=== PATIENT | male | born 1995 | race Caucasian/White ===

== ENCOUNTER 2018-01-30 20:23 | Emergency (ER) | payer BC ==
--- OUTSIDE RECORDS SUMMARY | 2018-01-30 20:25 | XMS REPORT ---
:1995 [facility] Address [address] [place] [address] Care Team Providers Name Role Phone PROVIDER, ED TEMP Unavailable Unavailable Problems This patient has no known problems. Allergies, Adverse Reactions, Alerts This patient has no known allergies or adverse reactions. Medications This patient has no known medications. Results Test Description Test Time Test Comments Text Results Atomic Results Result Comments Chemistry 2018-01-07 09:03:00 Test Item Value Reference Range Comments Chemistry (test code=NA-T) 136 mmol/L 136-145 Chemistry (test code=K-T) 4.1 mmol/L 3.5-5.1 Chemistry (test code=CL) 99 mmol/L 98-107 Chemistry (test code=CO2) 28 mmol/L 22-29 Chemistry (test code=ANGP) 13 mmol/L 10-20 Chemistry (test code=BUN) 9 mg/dL 8.9-20.6 Chemistry (test code=CREATT) 0.90 mg/dL 0.6-1.3 Chemistry (test Greater than 90 Reference Range for Estimated code=EGFRMDRD) GFR: Greater than 90 mL/min/1.73 m2NOTE:The MDRD equation has not been validated for use with theelderly (over 70 years of age), women, patientswith serious comorbid condition or persons with extremes ofbody size, muscle mass, or nutritional status. Chemistry (test code=GLU-T) 96 mg/dL 70-105 Chemistry (test code=CA) 9.8 mg/dL 7.8-10.44 Chemistry (test code=TBILI) 1.2 mg/dL 0.2-1.2 Chemistry (test code=TP) 9.0 g/dL 6.0-8.3 Chemistry (test code=ALB) 4.8 g/dL 3.5-5.0 Chemistry (test code=GLOB) 4.2 g/dL 2.4-3.5 Chemistry (test code=AG) 1.1 g/dL 1.2-2.2 Chemistry (test code=ALP) 156 U/L 40-150 Chemistry (test code=AST) 37 U/L 5-34 Chemistry (test code=ALT) 70 U/L 8-55 [id number] 09:03:00 Test Item Value Reference Range Comments Chemistry (test code=LIP) 25 U/L 8-78 [id number] 08:50:00 Test Item Value Reference Range Comments Hematology (test code=WBCT) 10.1 thou/uL 4.8-10.8 Hematology (test code=RBCT) 5.58 mill/uL 4.70-6.10 Hematology (test code=HGBT) 15.5 g/dL 14.0-18.0 Hematology (test code=HCTT) 47.3 % 42.0-52.0 Hematology (test code=MCV) 84.8 fL 78.0-98.0 Hematology (test code=MCH) 27.8 pg 27.0-31.0 Hematology (test code=MCHC) 32.7 g/dL 32.0-36.0 Hematology (test code=RDW) 12.4 % 11.5-14.5 Hematology (test code=PLTT) 290 thou/uL 130-400 Hematology (test code=MPV) 6.8 fL 7.4-10.4 Hematology (test code=%NEUT) 66.8 % 42.0-75.0 Hematology (test code=%LYMPH) 21.2 % 21.0-51.0 Hematology (test code=%MONO) 10.1 % 0.0-10.0 Hematology (test code=%EOS) 1.5 % 0.0-10.0 Hematology (test code=%BASO) 0.4 % 0.0-1.0 Hematology (test code=NEUT#) 6.8 thou/uL 1.40-6.50 Hematology (test code=LYMPH#) 2.1 thou/uL 1.20-3.40 Hematology (test code=MONO#) 1.0 thou/uL 0.11-0.59 Hematology (test code=EOS#) 0.1 thou/uL 0.0-0.7 Hematology (test code=BASO#) 0.0 thou/uL 0.0-0.2
[2018-01-30] MEDS ORDERED: ONDANSETRON 4 MG/2 ML VIAL ONE (22:53)
[2018-01-30] MEDS ORDERED: NA CHLORIDE 0.9% 1,000 ML ONE (22:53)
[2018-01-30] MEDS ORDERED: ACETAMINOPHEN 500 MG TAB ONE (22:53)
--- NOTE | 2018-01-30 23:01 | EDPHYS ---
Physician Documentation [facility] Name: Kingsley Justin Age: 23 yrs Sex: Male : 1995 Arrival Date: 01/30/2018 Time: 20:26 Bed 14 Private MD: ED Physician Jaspreet Bhardwaj HPI: 01/30 22:34 This 23 yrs old Male presents to ER via Ambulatory with complaints of ma2 Nausea/Vomiting/Diarrhea. 22:34 The patient presents to the emergency department with nausea, vomiting, diarrhea. ma2 Possible causes: bad food exposure. Associated signs and symptoms: Pertinent positives: nausea, vomiting. Severity of symptoms: At their worst the symptoms were mild in the emergency department the symptoms are unchanged. The patient has experienced a previous episode. Historical: - Allergies: 22:20 No Known Allergies; jb4 - Home Meds: 22:20 None [Active]; jb4 - PMHx: 22:20 Hypertension; jb4 - PSHx: 22:20 None; jb4 - Immunization history:: Adult Immunizations up to date, Flu vaccine is up to date. - Social history:: Smoking status: Patient/guardian denies using tobacco, Patient/guardian denies using alcohol, Patient/guardian denies using street drugs, The patient lives with family. - Ebola Screening: : No symptoms or risks identified at this time. - Family history:: not pertinent. ROS: 22:34 Eyes: Negative for injury, pain, redness, and discharge, Cardiovascular: Negative for ma2 chest pain, palpitations, and edema. 22:34 Abdomen/GI: Positive for nausea, vomiting, and diarrhea, constipation, abdominal cramps, abdominal distension, anorexia, rectal bleeding, flatulence. 22:34 All other systems are negative. Exam: 22:34 Constitutional: This is a well developed, well nourished patient who is awake, alert, ma2 and in no acute distress. Chest/axilla: Normal chest wall appearance and motion. Nontender with no deformity. No lesions are appreciated. Cardiovascular: Regular rate and rhythm with a normal S1 and S2. No gallops, murmurs, or rubs. Normal PMI, no JVD. No pulse deficits. Respiratory: Lungs have equal breath sounds bilaterally, clear to auscultation and percussion. No rales, rhonchi or wheezes noted. No increased work of breathing, no retractions or nasal flaring. Abdomen/GI: Soft, non-tender, with normal bowel sounds. No distension or tympany. No guarding or rebound. No evidence of tenderness throughout. Vital Signs: 22:20 BP 133 / 91; Pulse 114; Resp 16; Temp 100.4(O); Pulse Ox 95% on R/A; Weight 111.13 kg jb4 (R); Height 5 ft. 8 in. (172.72 cm) (R); Pain 0/10; 23:15 BP 126 / 58; Pulse 102; Resp 16; Pulse Ox 94% on R/A; jb4 23:33 Temp 99.5(O); mt 12 00:17 BP 126 / 75; Pulse 76; Resp 18; Pulse Ox 99% on R/A; jb4 01/30 22:20 Body Mass Index 37.25 (111.13 kg, 172.72 cm) [facility] MDM: 01/30 22:34 Differential diagnosis: gastritis, viral gastroenteritis, gastroenteritis. Data ma2 reviewed: vital signs, nurses notes. Counseling: I had a detailed discussion with the patient and/or guardian regarding: the historical points, exam findings, and any diagnostic results supporting the discharge/admit diagnosis, the presence of at least one elevated blood pressure reading (>120/80) during this emergency department visit, the need for outpatient follow up. Response to treatment: the patient's symptoms have markedly improved after treatment. 22:35 Patient medically screened. ma2 Administered Medications: 22:40 Drug: Acetaminophen 1000 mg Route: PO; [facility] 23:35 Follow up: Response: No adverse reaction; Temperature is decreased [facility] 22:42 Drug: NS 0.9% 1000 ml Route: IV; Rate: 1 bolus; Site: right antecubital; 4 01/31 00:21 Follow up: Response: No adverse reaction; IV Status: Completed infusion [facility] 01/30 22:43 Drug: Zofran 4 mg Route: IVP; Site: right antecubital; [facility] 23:35 Follow up: Response: No adverse reaction; Nausea is decreased [facility] Disposition: 01/30/18 23:00 Discharged to Home. Impression: Diarrhea, unspecified. - Condition is Stable. - Prescriptions for Zofran 4 mg Oral Tablet - take 1 tablet by ORAL route every 12 hours As needed; 20 tablet. - Work release form, Medication Reconciliation Form, Thank You Letter, Antibiotic Education, Prescription Opioid Use form. - Follow up: Private Physician; When: Tomorrow; Reason: Continuance of care. Signatures: Everette Moura RN RN jb4 Jaspreet Bhardwaj MD MD ma2 Corrections: (The following items were deleted from the chart) 01/31 00:22 01/30 23:00 01/30/2018 23:00 Discharged to Home. Impression: Diarrhea, unspecified. jb4 Condition is Stable. Prescriptions for Zofran 4 mg Oral Tablet - take 1 tablet by ORAL route every 12 hours As needed; 20 tablet. and Forms are Medication Reconciliation Form, Thank You Letter, Antibiotic Education, Prescription Opioid Use. Follow up: Private Physician; When: Tomorrow; Reason: Continuance of care. ma2
--- NOTE | 2018-01-30 23:01 | ER ---
Nurse's Notes [facility] Name: Kingsley Justin Age: 23 yrs Sex: Male : 1995 Arrival Date: 01/30/2018 Time: 20:26 Bed 14 Private MD: Diagnosis: Diarrhea, unspecified Presentation: 01/30 20:35 Note Patient's girlfriend who came with him was sent by ER physician to L\T\D for aj1 clearance prior to being seen in the ER. Patient requests to accompany his girlfriend and then return to be seen when she does. 22:20 Presenting complaint: Patient states: I have had nausea, vomiting and diarrhea since jb4 this morning. I think it is food poisoning as my fiance, her sister and myself all have the same symptoms. 22:20 Transition of care: patient was not received from another setting of care. Onset of jb4 symptoms was January 30, 2018. Risk Assessment: Do you want to hurt yourself or someone else? Patient reports no desire to harm self or others. Initial Sepsis Screen: Does the patient meet any 2 criteria? HR > 90 bpm. Yes Does the patient have a suspected source of infection?. 22:20 Method Of Arrival: Ambulatory jb4 22:20 Acuity: EDMAR 3 jb4 22:20 Care prior to arrival: None. jb4 Triage Assessment: 22:20 General: Appears in no apparent distress. comfortable, Behavior is calm, cooperative, jb4 appropriate for age. Pain: Denies pain. EENT: No signs and/or symptoms were reported regarding the EENT system. Neuro: Level of Consciousness is awake, alert, obeys commands, Oriented to person, place, time, situation. Cardiovascular: Heart tones S1 S2 present Patient's skin is warm and dry. Respiratory: Airway is patent Respiratory effort is even, unlabored, Respiratory pattern is regular, symmetrical, Breath sounds are clear bilaterally. GI: Abdomen is round non-distended, Bowel sounds present X 4 quads. Abd is soft and non tender X 4 quads. Reports diarrhea, nausea, vomiting. : No signs and/or symptoms were reported regarding the genitourinary system. Derm: Skin is intact, Skin is pink, warm \T\ dry. Musculoskeletal: Circulation, motion, and sensation intact. Historical: - Allergies: 22:20 No Known Allergies; jb4 - Home Meds: 22:20 None [Active]; jb4 - PMHx: 22:20 Hypertension; jb4 - PSHx: 22:20 None; jb4 - Immunization history:: Adult Immunizations up to date, Flu vaccine is up to date. - Social history:: Smoking status: Patient/guardian denies using tobacco, Patient/guardian denies using alcohol, Patient/guardian denies using street drugs, The patient lives with family. - Ebola Screening: : No symptoms or risks identified at this time. - Family history:: not pertinent. Screenin:37 Abuse screen: Denies threats or abuse. Nutritional screening: No deficits noted. jb4 Tuberculosis screening: No symptoms or risk factors identified. 22:37 Fall Risk None identified. jb4 Assessment: 22:37 General: see triage assement.. GI: Abdomen is round non-distended, Bowel sounds present jb4 X 4 quads. Abd is soft and non tender X 4 quads. Reports diarrhea, nausea, vomiting. 23:29 Reassessment: Patient appears in no apparent distress at this time. Patient and/or jb4 family updated on plan of care and expected duration. Pain level reassessed. Patient is alert, oriented x 3, equal unlabored respirations, skin warm/dry/pink. Waiting for IV fluid to finish prior to discharge. 01/31 00:17 Reassessment: Patient appears in no apparent distress at this time. Patient and/or jb4 family updated on plan of care and expected duration. Pain level reassessed. Patient is alert, oriented x 3, equal unlabored respirations, skin warm/dry/pink. Discussed D/c, F/u with pt and significant other, denies questions or concerns. Vital Signs: 01/30 22:20 BP 133 / 91; Pulse 114; Resp 16; Temp 100.4(O); Pulse Ox 95% on R/A; Weight 111.13 kg jb4 (R); Height 5 ft. 8 in. (172.72 cm) (R); Pain 0/10; 23:15 BP 126 / 58; Pulse 102; Resp 16; Pulse Ox 94% on R/A; jb4 23:33 Temp 99.5(O); mt 01/31 00:17 BP 126 / 75; Pulse 76; Resp 18; Pulse Ox 99% on R/A; jb4 12/14 22:20 Body Mass Index 37.25 (111.13 kg, 172.72 cm) jb4 ED Course: 01/30 20:26 Patient arrived in ED. al2 22:20 Arm band placed on left wrist. jb4 22:27 Jaspreet Bhardwaj MD is Attending Physician. ma2 22:30 Everette Moura, RN is Primary Nurse. jb4 22:31 Triage completed. jb4 22:37 Patient has correct armband on for positive identification. Bed in low position. Call jb4 light in reach. Side rails up X 1. Pulse ox on. NIBP on. 22:40 Inserted saline lock: 20 gauge in right antecubital area, using aseptic technique. mt Blood collected. 01/31 00:17 No provider procedures requiring assistance completed. Patient did not have IV access jb4 during this emergency room visit. Administered Medications: 01/30 22:40 Drug: Acetaminophen 1000 mg Route: PO; jb4 23:35 Follow up: Response: No adverse reaction; Temperature is decreased jb4 22:42 Drug: NS 0.9% 1000 ml Route: IV; Rate: 1 bolus; Site: right antecubital; jb4 01/31 00:21 Follow up: Response: No adverse reaction; IV Status: Completed infusion jb4 01/30 22:43 Drug: Zofran 4 mg Route: IVP; Site: right antecubital; jb4 23:35 Follow up: Response: No adverse reaction; Nausea is decreased jb4 Outcome: 23:00 Discharge ordered by . ma2 01/31 00:17 Discharged to home ambulatory. jb4 Condition: stable Discharge instructions given to patient, significant other, Instructed on discharge instructions, follow up and referral plans. medication usage, Demonstrated understanding of instructions, follow-up care, medications, Prescriptions given X 1. 00:22 Patient left the ED. jb4 Signatures: Nesha Cm RN RN aj1 Everette Moura RN RN jb4 Belinda Downs mt, Angelica al2 Alzahri, Mohammad, MD MD ma2
== END 2018-01-31 00:22 | disposition home or self-care (01) ==
LOC: ER 20:23
DX: R19.7 Diarrhea, unspecified (principal); I10 Essential (primary) hypertension
CPT/HCPCS: 96361; 96374; 99284; J2405; J7030

== ENCOUNTER 2018-08-22 18:26 | Emergency (ER) | payer BC ==
--- OUTSIDE RECORDS SUMMARY | 2018-08-22 18:29 | XMS REPORT ---
:1995 [facility] Address [address] [place] [address] Care Team Providers Name Role Phone PROVIDER, [...] 5-34 Chemistry (test code=ALT) 70 U/L 8-55 [id number] 09:03:00 Test Item Value Reference Range Comments Chemistry (test code=LIP) 25 U/L 8-78 [id number] 08:50:00 Test Item Value Reference Range Comments [...]
--- NOTE | 2018-08-22 19:11 | RAD REPORT ---
EXAM DESCRIPTION: CT - Head C Spine Cap Wo Con - 08/22/2018 6:55 pm CLINICAL HISTORY: Trauma, head and neck injury. Chest, abdomen and pelvis pain. Pain;Smash injury COMPARISON: No comparisons TECHNIQUE: CT head without contrast. CT cervical spine without contrast with coronal and sagittal reformatted images. CT chest, abdomen and pelvis without contrast with coronal and sagittal reformatted images of the [facility]. All CT scans are performed using dose optimization technique as appropriate and may include automated exposure control or mA/KV adjustment according to patient size. FINDINGS: CT HEAD WITHOUT CONTRAST: No intracranial hemorrhage, hydrocephalus or extra-axial fluid collection. No areas of brain edema o r midline shift. The paranasal sinuses and mastoids are clear. The calvarium is intact. CT CERVICAL SPINE WITHOUT CONTRAST: No fracture or subluxation. The prevertebral soft tissues are normal in thickness. CT CHEST, ABDOMEN, PELVIS WITHOUT CONTRAST: NOTE: Lack of contrast is a significant limitation in the assessment of trauma related findings. Spec ifically, solid organ, vascular and bowel evaluation is significantly limited. The lungs are clear.No pneumothorax or pericardial/pleural fluid. No evidence of intra-abdominal visceral injury, free fluid or free air is seen within the above detai led limitations. No concerning pelvic findings. No fractures. IMPRESSION: Negative for acute traumatic findings within the above detailed limitations.
[2018-08-22] MEDS ORDERED: TETANUS & DIPHTHERIA TOX,ADULT 0.5 ML VIAL ONE (19:15)
[2018-08-22] MEDS ORDERED: HYDROCODONE/APAP 7.5/325 MG TAB ONE (19:15)
--- NOTE | 2018-08-22 19:47 | EDPHYS ---
Physician Documentation [facility] Name: Kingsley Justin Age: 23 yrs Sex: Male : 1995 Arrival Date: 08/22/2018 Time: 18:29 Bed 6 Private MD: ED Physician Jaspreet Bhardwaj HPI: 08/22 19:00 This 23 yrs old Male presents to ER via Ambulatory with complaints of Fall snw Injury. 19:00 Details of fall: The patient fell from a height, down approximately 20 stairs. Onset: snw The symptoms/episode began/occurred suddenly, just prior to arrival. Associated injuries: The patient sustained injury to the low back, pain with movement. Severity of symptoms: At their worst the symptoms were moderate, in the emergency department the symptoms are unchanged. The patient has not experienced similar symptoms in the past. It is unknown whether or not the patient has recently seen a physician. pt was on inflatable water slide, fell off top (20 feet), and landed on buttock on grass. No LOC. Historical: - Allergies: 18:44 No Known Allergies; iw - Home Meds: 18:44 None [Active]; iw - PMHx: 18:44 Hypertension; iw - PSHx: 18:44 None; iw - Immunization history: Last tetanus immunization: unknown. - Social history:: Smoking status: unknown. - Ebola Screening: : Patient negative for fever greater than or equal to 101.5 degrees Fahrenheit, and additional compatible Ebola Virus Disease symptoms Patient denies exposure to infectious person Patient denies travel to an Ebola-affected area in the 21 days before illness onset No symptoms or risks identified at this time. ROS: 19:00 Constitutional: Negative for fever, chills, and weight loss, Eyes: Negative for injury, snw pain, redness, and discharge, ENT: Negative for injury, pain, and discharge, Neck: Negative for injury, pain, and swelling, Cardiovascular: Negative for chest pain, palpitations, and edema, Respiratory: Negative for shortness of breath, cough, wheezing, and pleuritic chest pain, Abdomen/GI: Negative for abdominal pain, nausea, vomiting, diarrhea, and constipation, : Negative for injury, bleeding, discharge, and swelling, MS/Extremity: Negative for injury and deformity, Skin: Negative for injury, rash, and discoloration, Neuro: Negative for headache, weakness, numbness, tingling, and seizure. 19:00 Back: Positive for pain with movement, of the low back area and mid back area. Exam: 18:57 Constitutional: This is a well developed, well nourished patient who is awake, alert, snw and in no acute distress. Head/Face: Normocephalic, atraumatic. Eyes: Pupils equal round and reactive to light, extra-ocular motions intact. Lids and lashes normal. Conjunctiva and sclera are non-icteric and not injected. Cornea within normal limits. Periorbital areas with no swelling, redness, or edema. ENT: Nares patent. No nasal discharge, no septal abnormalities noted. Tympanic membranes are normal and external auditory canals are clear. Oropharynx with no redness, swelling, or masses, exudates, or evidence of obstruction, uvula midline. Mucous membranes moist. Neck: Trachea midline, no thyromegaly or masses palpated, and no cervical lymphadenopathy. Supple, on exam pt winced with palpation of c-spine. Cervical traction maintained and c-collar placed. No Meningismus. Chest/axilla: Normal chest wall appearance and motion. Nontender with no deformity. No lesions are appreciated. Cardiovascular: Regular rate and rhythm with a normal S1 and S2. No gallops, murmurs, or rubs. Normal PMI, no JVD. No pulse deficits. Respiratory: Lungs have equal breath sounds bilaterally, clear to auscultation and percussion. No rales, rhonchi or wheezes noted. No increased work of breathing, no retractions or nasal flaring. Abdomen/GI: Soft, non-tender, with normal bowel sounds. No distension or tympany. No guarding or rebound. No evidence of tenderness throughout. Back: No spinal tenderness, low back tenderness with movement. No costovertebral tenderness, encouraged to limit range of motion until CT evaluation Skin: Warm, dry with normal turgor. Normal color with no rashes, no lesions, and no evidence of cellulitis. Vital Signs: 18:44 BP 157 / 93; Pulse 90; Resp 18 S; Temp 97.8(TE); Pulse Ox 98% on R/A; Weight 122.47 kg; iw Height 5 ft. 8 in. (172.72 cm); Pain 8/10; 19:40 BP 138 / 84; Pulse 96; Resp 16; Temp 98.1; Pulse Ox 98% on R/A; Pain 5/10; ak1 18:44 Body Mass Index 41.05 (122.47 kg, 172.72 cm) iw Pettus Coma Score: 18:44 Eye Response: spontaneous(4). Verbal Response: oriented(5). Motor Response: obeys iw commands(6). Total: 15. Trauma Score (Adult): 18:44 Eye Response: spontaneous(1); Verbal Response: oriented(1); Motor Response: obeys iw commands(2); Systolic BP: > 89 mm Hg(4); Respiratory Rate: 10 to 29 per min(4); Jose A Score: 15; Trauma Score: 12 MDM: 18:40 Patient medically screened. snw 19:47 Data reviewed: vital signs, nurses notes. Data interpreted: Pulse oximetry: on room air snw is 98 %. Interpretation: normal. Counseling: I had a detailed discussion with the patient and/or guardian regarding: the historical points, exam findings, and any diagnostic results supporting the discharge/admit diagnosis, the presence of at least one elevated blood pressure reading (>120/80) during this emergency department visit, radiology results, the need for outpatient follow up, to return to the emergency department if symptoms worsen or persist or if there are any questions or concerns that arise at home. Special discussion: I have referred the patient to see his PCP for further evaluation of high blood pressure. Based on the history and exam findings, there is no indication for further emergent testing or inpatient evaluation. I discussed with the patient/guardian the need to see the primary care provider for further evaluation of the symptoms. 08/22 18:40 Order name: CT Traumagram (Head C Spine CAP wo con); Complete Time: 19:18 snw Administered Medications: 19:00 Drug: Tetanus-Diphtheria Toxoid Adult 0.5 ml {Application Security Engineer: [employer]. Exp: ca1 05/09/2020. Lot #: [id number]. } Route: IM; Site: right deltoid; 19:45 Follow up: Response: No adverse reaction ak1 19:00 Drug: Madison (7.5 mg-325 mg) 1 tabs Route: PO; ca1 19:45 Follow up: Response: No adverse reaction; Pain is decreased ak1 20:01 Drug: Valium 5 mg Route: PO; ak1 20:01 Follow up: Response: No adverse reaction; Medication administered at discharge. ak1 Disposition: 08/22/18 19:46 Discharged to Home. Impression: Fall (on) (from) unspecified stairs and steps, Low back pain. - Condition is Stable. - Discharge Instructions: Back Pain, Adult, Musculoskeletal Pain, Back Injury Prevention, Xcdb-[id number], How to Take Your Blood Pressure, Iguo-yu-Ajoz, Back Exercises, Gmys-dp-Kuea, Cryotherapy, Rehydration, Adult, Heat Therapy, Form - Blood Pressure Record Sheet. - Prescriptions for Diclofenac Sodium 75 mg Oral Tablet Sustained Release - take 1 tablet by ORAL route 2 times per day; 30 tablet. orphenadrine citrate 100 mg Oral Tablet Sustained Release - take 1 tablet by ORAL route 2 times per day As needed; 20 tablet. - Work release form, Medication Reconciliation Form, Thank You Letter, Antibiotic Education, Prescription Opioid Use form. - Follow up: Private Physician; When: 2 - 3 days; Reason: Recheck today's complaints, Continuance of care, Re-evaluation by your physician. Follow up: Emergency Department; When: As needed; Reason: Worsening of condition. Addendum: 08/27/2018 02:10 Co-signature as Attending Physician, Jaspreet Bhardwaj MD. m a2 Signatures: Dispatcher [employer] EDFL Shanti Deleon, ANGELIQUE-C DRILL PRESS TENDER-Csnw Tonia Simms RN RN Christiana Delaney RN RN ak1 Jaspreet Bhardwaj MD MD [facility] Sabrina Lee RN RN ca1 Corrections: (The following items were deleted from the chart) 08/22 20:03 19:46 08/22/2018 19:46 Discharged to Home. Impression: Fall (on) (from) unspecified ak1 stairs and steps; Low back pain. Condition is Stable. Forms are Medication Reconciliation Form, Thank You Letter, Antibiotic Education, Prescription Opioid Use. Follow up: Private Physician; When: 2 - 3 days; Reason: Recheck today's complaints, Continuance of care, Re-evaluation by your physician. Follow up: Emergency Department; When: As needed; Reason: Worsening of condition. snw
--- NOTE | 2018-08-22 19:47 | ER ---
Nurse's Notes [facility] Name: Kingsley Justin Age: 23 yrs Sex: Male : 1995 Arrival Date: 08/22/2018 Time: 18:29 Bed 6 Private MD: Diagnosis: Fall (on) (from) unspecified stairs and steps;Low back pain Presentation: 08/22 18:39 Presenting complaint: Patient states: fell off inflatable water slide, fell from 20 iw feet, fell onto buttocks and back, denies LOC, now has pain from mid back to tail bone, rates pain 8/10, denies numbness, tingling, or weakness in extremities. Care prior to arrival: None. Mechanism of Injury: Fall 20 feet from water slide. Trauma event details: Injury occurred in the [facility], Injury occurred: at home. Injury occurred: August 22, 2018. 18:39 Acuity: EDMAR 2 iw 18:39 Method Of Arrival: Ambulatory iw 18:46 Transition of care: patient was not received from another setting of care. Onset of iw symptoms was August 22, 2018. Risk Assessment: Do you want to hurt yourself or someone else? Patient reports no desire to harm self or others. Initial Sepsis Screen: Does the patient meet any 2 criteria? No. Patient's initial sepsis screen is negative. Does the patient have a suspected source of infection? No. Patient's initial sepsis screen is negative. Trauma Activation: Alert Physician: ED Physician; Name: Dr. Bhardwaj/Shanti Deleon, CORSET FITTER; Notified At: 18:33; Arrived At: 18:33 Physician: General Surgeon; Name: N/A; Notified At: 18:33; Arrived At: N/A Physician: Radiology; Name: ; Notified At: 18:33; Arrived At: Physician: Respiratory; Name: N/A; Notified At: 18:33; Arrived At: N/A Physician: Lab; Name: N/A; Notified At: 18:33; Arrived At: N/A Historical: - Allergies: 18:44 No Known Allergies; iw - Home Meds: 18:44 None [Active]; iw - PMHx: 18:44 Hypertension; iw - PSHx: 18:44 None; iw - Immunization history: Last tetanus immunization: unknown. - Social history:: Smoking status: unknown. - Ebola Screening: : Patient negative for fever greater than or equal to 101.5 degrees Fahrenheit, and additional compatible Ebola Virus Disease symptoms Patient denies exposure to infectious person Patient denies travel to an Ebola-affected area in the 21 days before illness onset No symptoms or risks identified at this time. Screenin:45 Abuse screen: Denies threats or abuse. Denies injuries from another. Tuberculosis iw screening: No symptoms or risk factors identified. 19:42 Nutritional screening: No deficits noted. Fall Risk None identified. ak1 Primary Survey: 18:45 NO uncontrolled hemorrhage observed. A: The patient is alert. Airway: patent, No iw supplemental oxygen in use on arrival. Breathing/Chest: Respiratory pattern: regular, Respiratory effort: spontaneous, Breath sounds: clear, Chest inspection: symmetrical rise and fall of the chest. Circulation: Heart tones present. Pulses: palpable bilateral radial, brachial, femoral, popliteal, posterior tibial and and dorsalis pedis arteries.. Disability Alert. Exposure/Environment: All clothing and personal items were removed. Forensic evidence collection is not deemed to be indicated at this time. Items placed in patient belonging bag. 18:47 Reassessment Airway Airway Patent Breathing/Chest Respiratory pattern Regular iw Respiratory effort Spontaneous Unlabored Circulation Pulses Palpable Disability Alert. Assessment: 19:40 General: Appears in no apparent distress. comfortable, pt C-collar removed per ERP. . ak1 Behavior is calm, cooperative. Pain: Pain currently is 5 out of 10 on a pain scale. Neuro: Level of Consciousness is awake, alert, obeys commands, Oriented to person, place, time, situation, Sharepoint Designer Developer are equal bilaterally Moves all extremities. Speech is normal, Facial symmetry appears normal. Cardiovascular: No deficits noted. Respiratory: No deficits noted. GI: No signs and/or symptoms were reported involving the gastrointestinal system. : No signs and/or symptoms were reported regarding the genitourinary system. EENT: No signs and/or symptoms were reported regarding the EENT system. Derm: No signs and/or symptoms reported regarding the dermatologic system. Musculoskeletal: Range of motion: limited in mid back area and low back area limited due to pain. pt stated pain is decreased after medications. Injury Description: fall from water slide aprox 20 feet in air. Vital Signs: 18:44 BP 157 / 93; Pulse 90; Resp 18 S; Temp 97.8(TE); Pulse Ox 98% on R/A; Weight 122.47 kg; iw Height 5 ft. 8 in. (172.72 cm); Pain 8/10; 19:40 BP 138 / 84; Pulse 96; Resp 16; Temp 98.1; Pulse Ox 98% on R/A; Pain 5/10; ak1 18:44 Body Mass Index 41.05 (122.47 kg, 172.72 cm) iw Bison Coma Score: 18:44 Eye Response: spontaneous(4). Verbal Response: oriented(5). Motor Response: obeys iw commands(6). Total: 15. Trauma Score (Adult): 18:44 Eye Response: spontaneous(1); Verbal Response: oriented(1); Motor Response: obeys iw commands(2); Systolic BP: > 89 mm Hg(4); Respiratory Rate: 10 to 29 per min(4); Bison Score: 15; Trauma Score: 12 ED Course: 18:29 Patient arrived in ED. rg4 18:34 [facility]C [facility]. snw 18:34 Jaspreet Bhardwaj MD is Attending Physician. snw 18:34 Sabrina Lee, JAZZY is Primary Nurse. ca1 18:44 Triage completed. iw 18:46 Patient has correct armband on for positive identification. iw 18:46 Arm band placed on. iw 18:46 Patient maintains SpO2 saturation greater than 95% on room air. Thermoregulation: warm iw blanket given to patient. 18:55 CT Traumagram (Head C Spine CAP wo con) In Process Unspecified. EDMS 19:43 No provider procedures requiring assistance completed. ak1 20:03 Patient did not have IV access during this emergency room visit. ak1 Administered Medications: 19:00 Drug: Tetanus-Diphtheria Toxoid Adult 0.5 ml {Bistro Attendant: CGTrader. Exp: ca1 05/09/2020. Lot #: [id number]. } Route: IM; Site: right deltoid; 19:45 Follow up: Response: No adverse reaction ak1 19:00 Drug: [place] (7.5 mg-325 mg) 1 tabs Route: PO; ca1 19:45 Follow up: Response: No adverse reaction; Pain is decreased ak1 20:01 Drug: Valium 5 mg Route: PO; ak1 20:01 Follow up: Response: No adverse reaction; Medication administered at discharge. ak1 Intake: 19:42 PO: 0ml; Total: 0ml. ak1 Outcome: 19:46 Discharge ordered by MD. fang 20:02 Discharged to home ambulatory, with family. ak1 20:02 Condition: good 20:02 Discharge instructions given to patient, family, Instructed on discharge instructions, follow up and referral plans. no drinking with medication, no driving heavy equipment, medication usage, Demonstrated understanding of instructions, follow-up care, medications, Prescriptions given X 2. 20:03 Patient left the ED. ak1 Signatures: Dispatcher [employer] EDMS Shanti Deleon, STONE DERRICKMAN AND RIGGER-C STONE DERRICKMAN AND RIGGER-Csnw Tonia Simms RN RN iw Christiana Delaney RN RN akMayte Gonzales 4 Sabrina Lee RN RN ca1 Corrections: (The following items were deleted from the chart) 18:47 18:44 BP 157 / 93; Pulse 90bpm; Resp 18bpm; Spontaneous; Pulse Ox 98% RA; 122.47 kg; iw Height 5 ft. 8 in.; BMI: 41.0; Pain 8/10; iw
[2018-08-22] MEDS ORDERED: DIAZEPAM 5 MG TABLET ONE (20:09)
== END 2018-08-22 20:03 | disposition home or self-care (01) ==
LOC: ER 18:26
DX: M54.5 Low back pain (principal); W10.9XXA Fall (on) (from) unspecified stairs and steps, initial encounter; Y93.89 Activity, other specified; Y92.9 Unspecified place or not applicable; Z23 Encounter for immunization; I10 Essential (primary) hypertension
CPT/HCPCS: 70450; 71250; 72125; 90471; 90714; 99284

== ENCOUNTER 2020-07-07 16:39 | Emergency (ER) | payer BC, SELFPAY ==
--- OUTSIDE RECORDS SUMMARY | 2020-07-07 16:42 | XMS REPORT | Continuity of Care Document ---
:1995 Author Organization [facility] t Address [address] [place] [address] Care Team Providers Name Role Phone PROVIDER, TEMP Attending Clinician Unavailable Problems This patient has no known problems. Allergies, Adverse Reactions, Alerts This patient has no known allergies or adverse reactions. Medications This patient has no known medications. Procedures This patient has no known procedures. Results Test Description Test Time Test Comments Results Result Comments Source Chemistry 2018-01-07 09:03:00 Test Item Value Reference Range Interpretation Comme nts Chemistry (test code = 136 mmol/L 136-145 N NA-T) Chemistry (test code = K-T) 4.1 mmol/L 3.5-5.1 N Chemistry (test code = CL) 99 mmol/L 98-107 N Chemistry (test code = CO2) 28 mmol/L 22-29 N Chemistry (test code = 13 mmol/L 10-20 N ANGP) Chemistry (test code = BUN) 9 mg/dL 8.9-20.6 N Chemistry (test code = 0.90 mg/dL 0.6-1.3 N CREATT) Chemistry (test code = Greater than 90 R eference Range for Estimated EGFRMDRD) GFR: Greater than 90 mL/min/1.73 m2NOTE:The MDRD equation has not been valida rafael for use with theelderly (over 70 years of age), women, patients with serious comorbid condit ion or persons with extremes o fbody size, muscle mass, or nutritional status. Chemistry (test code = 96 mg/dL 70-105 N GLU-T) Chemistry (test code = CA) 9.8 mg/dL 7.8-10.44 N Chemistry (test code = 1.2 mg/dL 0.2-1.2 N TBILI) Chemistry (test code = TP) 9.0 g/dL 6.0-8.3 H Chemistry (test code = ALB) 4.8 g/dL 3.5-5.0 N Chemistry (test code = 4.2 g/dL 2.4-3.5 H GLOB) Chemistry (test code = AG) 1.1 g/dL 1.2-2.2 L Chemistry (test code = ALP) 156 U/L 40-150 H Chemistry (test code = AST) 37 U/L 5-34 H Chemistry (test code = ALT) 70 U/L 8-55 H [id number] 09:03:00 Test Item Value Reference Range Interpretation Comments Chemistry (test code = LIP) 25 U/L 8-78 N [id number] 08:50:00 Test Item Value Reference Range Interpretation Comments Hematology (test code = WBCT) 10.1 thou/uL 4.8-10.8 N Hematology (test code = RBCT) 5.58 mill/uL 4.70-6.10 N Hematology (test code = HGBT) 15.5 g/dL 14.0-18.0 N Hematology (test code = HCTT) 47.3 % 42.0-52.0 N Hematology (test code = MCV) 84.8 fL 78.0-98.0 N Hematology (test code = MCH) 27.8 pg 27.0-31.0 N Hematology (test code = MCHC) 32.7 g/dL 32.0-36.0 N Hematology (test code = RDW) 12.4 % 11.5-14.5 N Hematology (test code = PLTT) 290 thou/uL 130-400 N Hematology (test code = MPV) 6.8 fL 7.4-10.4 L Hematology (test code = %NEUT) 66.8 % 42.0-75.0 N Hematology (test code = %LYMPH) 21.2 % 21.0-51.0 N Hematology (test code = %MONO) 10.1 % 0.0-10.0 H Hematology (test code = %EOS) 1.5 % 0.0-10.0 N Hematology (test code = %BASO) 0.4 % 0.0-1.0 N Hematology (test code = NEUT#) 6.8 thou/uL 1.40-6.50 H Hematology (test code = LYMPH#) 2.1 thou/uL 1.20-3.40 N Hematology (test code = MONO#) 1.0 thou/uL 0.11-0.59 H Hematology (test code = EOS#) 0.1 thou/uL 0.0-0.7 N Hematology (test code = BASO#) 0.0 thou/uL 0.0-0.2 N
--- NOTE | 2020-07-07 17:11 | EDPHYS ---
Physician Documentation [facility] Name: Kingsley Justin Age: 25 yrs Sex: Male : 1995 Arrival Date: 07/07/2020 Time: 16:42 Bed 15 Private MD: ED Physician Jax Thao HPI: 07/07 17:30 This 25 yrs old Male presents to ER via Ambulatory with complaints of Ingrown kb toe nail. 17:31 The patient presents with ingrown nail left great toe. The complaints affect the left kb foot. Context: The problem was sustained at home, the patient can fully bear weight, the patient is able to ambulate. Onset: The symptoms/episode began/occurred 1 week(s) ago. Modifying factors: The symptoms are alleviated by nothing, the symptoms are aggravated by pressure. Associated signs and symptoms: Pertinent positives: swelling, Pertinent negatives: calf tenderness, fever, nausea, numbness, rash, tingling, vomiting, warmth, weakness. Severity of symptoms: At their worst the symptoms were mild, in the emergency department the symptoms are unchanged. The patient has experienced a previous episode. The patient has not recently seen a physician. Pt reports ingrown nail for a week. . Historical: - Allergies: 17:01 No Known Allergies; em - PMHx: 17:01 Hypertension; em - PSHx: 17:01 None; em - Immunization history:: Adult Immunizations up to date. - Social history:: Smoking status: Patient denies any tobacco usage or history of. ROS: 17:25 Constitutional: Negative for fever, chills, and weight loss, MS/Extremity: Negative for kb injury and deformity, Neuro: Negative for headache, weakness, numbness, tingling, and seizure. 17:25 Skin: Positive for erythema, swelling, of the Left first toenail, ingrown nail. Exam: 17:28 Constitutional: This is a well developed, well nourished patient who is awake, alert, kb and in no acute distress. ENT: Moist Mucous membranes Respiratory: Respirations even and unlabored. No increased work of breathing, no retractions or nasal flaring. MS/ Extremity: Pulses equal, no cyanosis. Neurovascular intact. Full, normal range of motion. Neuro: Awake and alert, GCS 15, oriented to person, place, time, and situation. Moves all extremities. Normal gait. Psych: Awake, alert, with orientation to person, place and time. Behavior, mood, and affect are within normal limits. 17:28 Skin: mild erythema with minimal drainage to side of left great toenail. Vital Signs: 16:59 Pulse 85; Resp 18; Temp 97.7; Pulse Ox 99% on R/A; Weight 123.83 kg; Height 5 ft. 9 in. em (175.26 cm); Pain 10/10; 16:59 Body Mass Index 40.31 (123.83 kg, 175.26 cm) em MDM: 17:03 Patient medically screened. kb 17:25 Data reviewed: vital signs, nurses notes. Data interpreted: Pulse oximetry: on room air kb is 99 %. Interpretation: normal. Counseling: I had a detailed discussion with the patient and/or guardian regarding: the historical points, exam findings, and any diagnostic results supporting the discharge/admit diagnosis, the need for outpatient follow up, a category development analyst, to return to the emergency department if symptoms worsen or persist or if there are any questions or concerns that arise at home. Administered Medications: 17:34 Drug: Bactrim (trimethoprim-sulfamethoxazole) (160 mg-800 mg (DS) 1 tablet Route: PO; vg1 17:34 Follow up: Response: Medication administered at discharge. vg1 Disposition: 18:17 Co-signature as Attending Physician, Jax Thao MD I agree with the assessment and kdr plan of care. Disposition: 07/07/20 17:10 Discharged to Home. Impression: Ingrowing nail, Local infection of the skin and subcutaneous tissue, unspecified. - Condition is Stable. - Discharge Instructions: Ingrown Toenail. - Prescriptions for Diclofenac Sodium 75 mg Oral Tablet, Delayed Release (E.C.) - take 1 tablet by ORAL route 2 times per day As needed; 30 tablet. Bactrim DS 800- 160 mg Oral Tablet - take 1 tablet by ORAL route every 12 hours for 7 days; 14 tablet. - Medication Reconciliation Form, Thank You Letter, Antibiotic Education, Prescription Opioid Use form. - Follow up: Emergency Department; When: As needed; Reason: Worsening of condition. Follow up: Private Physician; When: 2 - 3 days; Reason: Recheck today's complaints, Continuance of care, Re-evaluation by your physician. Follow up: Oz Cooley, DOE; When: 2 - 3 days. Signatures: Sharri Grijalva, ANGELIQUE-C OLIVE BRINE TESTER-CkJax Ryan MD MD kdr Munoz, Edgar, RN RN Charlette Quiroz RN RN vg1 Corrections: (The following items were deleted from the chart) 17:36 17:10 07/07/2020 17:10 Discharged to Home. Impression: Ingrowing nail; Local infection vg1 of the skin and subcutaneous tissue, unspecified. Condition is Stable. Forms are Medication Reconciliation Form, Thank You Letter, Antibiotic Education, Prescription Opioid Use. Follow up: Emergency Department; When: As needed; Reason: Worsening of condition. Follow up: Private Physician; When: 2 - 3 days; Reason: Recheck today's complaints, Continuance of care, Re-evaluation by your physician. Follow up: Oz Cooley; When: 2 - 3 days. kb
--- NOTE | 2020-07-07 17:11 | ER ---
Nurse's Notes [facility] Name: Kingsley Justin Age: 25 yrs Sex: Male : 1995 Arrival Date: 07/07/2020 Time: 16:42 Bed 15 Private MD: Diagnosis: Ingrowing nail;Local infection of the skin and subcutaneous tissue, unspecified Presentation: 07/07 16:59 Chief complaint: Patient states: ingrown toe nail in the left big toe for 1.5 weeks, em denies fever. Coronavirus screen: Client denies travel out of the [place] in the last 14 days. Ebola Screen: Patient negative for fever greater than or equal to 101.5 degrees Fahrenheit, and additional compatible Ebola Virus Disease symptoms Patient denies exposure to infectious person. Patient denies travel to an Ebola-affected area in the 21 days before illness onset. No symptoms or risks identified at this time. Initial Sepsis Screen: Does the patient meet any 2 criteria? No. Patient's initial sepsis screen is negative. Does the patient have a suspected source of infection? Yes: Skin breakdown/wound. Risk Assessment: Do you want to hurt yourself or someone else? Patient reports no desire to harm self or others. Onset of symptoms was July 07, 2020. 16:59 Method Of Arrival: Ambulatory em 16:59 Acuity: EDMAR 4 em Historical: - Allergies: 17:01 No Known Allergies; em - PMHx: 17:01 Hypertension; em - PSHx: 17:01 None; em - Immunization history:: Adult Immunizations up to date. - Social history:: Smoking status: Patient denies any tobacco usage or history of. Screenin:36 Abuse screen: Denies threats or abuse. Nutritional screening: No deficits noted. vg1 Tuberculosis screening: No symptoms or risk factors identified. Fall Risk No fall in past 12 months (0 pts). No secondary diagnosis (0 pts). No IV (0 pts). Ambulatory Aid- None/Bed Rest/Nurse Assist (0 pts). Gait- Normal/Bed Rest/Wheelchair (0 pts) Mental Status- Oriented to own ability (0 pts). Total [place] Fall Scale indicates No Risk (0-24 pts). Assessment: 17:35 General: Appears in no apparent distress. comfortable, Behavior is calm, cooperative. vg1 Pain: Complains of pain in Left first toenail Pain currently is 9 out of 10 on a pain scale. Pain began about a week ago. Neuro: Level of Consciousness is awake, alert, obeys commands, Oriented to person, place, time, situation. Cardiovascular: Patient's skin is warm and dry. Respiratory: Airway is patent Respiratory effort is even, unlabored. Derm: Skin is intact, Skin is red, left big toe. Vital Signs: 16:59 Pulse 85; Resp 18; Temp 97.7; Pulse Ox 99% on R/A; Weight 123.83 kg; Height 5 ft. 9 in. em (175.26 cm); Pain 10; 16:59 Body Mass Index 40.31 (123.83 kg, 175.26 cm) em ED Course: 16:42 Patient arrived in ED. mr 17:00 Triage completed. em 17:01 Arm band placed on. em 17:03 Sharri Grijalva FNP-C is [facility]. kb 17:03 Jax Thao MD is Attending Physician. kb 17:10 Oz Cooley DPM is Referral Physician. kb 17:17 Charlette Nance, RN is Primary Nurse. vg1 17:36 Patient has correct armband on for positive identification. Bed in low position. Call vg1 light in reach. 17:36 No provider procedures requiring assistance completed. Patient did not have IV access vg1 during this emergency room visit. Administered Medications: 17:34 Drug: Bactrim (trimethoprim-sulfamethoxazole) (160 mg-800 mg (DS) 1 tablet Route: PO; vg1 17:34 Follow up: Response: Medication administered at discharge. vg1 Outcome: 17:10 Discharge ordered by . kb 17:36 Discharged to home ambulatory. vg1 17:36 Condition: stable 17:36 Discharge instructions given to patient, Instructed on discharge instructions, follow up and referral plans. medication usage, Demonstrated understanding of instructions, follow-up care, medications, Prescriptions given X 2. 17:36 Patient left the ED. vg1 Signatures: Sharri Grijalva FNP-C FNP-Ckb Kim MedelEdmond, RN RN Charlette Nance RN RN vg1
[2020-07-07] MEDS ORDERED: SMZ./TMP. 800/160 MG TABLET ONE (17:39)
[2020-07-07 17:55] VITALS: TEMP 97.7; O2SAT 99
== END 2020-07-07 17:36 | disposition home or self-care (01) ==
LOC: ER 16:39
DX: L08.9 Local infection of the skin and subcutaneous tissue, unspecified (principal); I10 Essential (primary) hypertension
CPT/HCPCS: 99283